=== PATIENT | female | born 1950 | race Caucasian/White ===

== ENCOUNTER 2017-01-26 15:02 | Emergency (ER) | payer MEDICAID ==
[~2017-01-26] VITALS: Ht 160 cm; Wt 100.0 kg
[~2017-01-26 15:02] MED LIST: ATEN50TA PO; DILT180C PO; HYDR25TA5 PO; LOSA100T PO; WARF-58 PO
[2017-01-26 15:06] VITALS: BP 140/75; PULSE 87; RESP 20; TEMP 100.1; O2SAT 98
[2017-01-26 16:35] VITALS: BP 162/84; PULSE 57; RESP 18; O2SAT 97
--- NOTE | 2017-01-26 16:40 | PD ---
HPI Chief Complaint: Dizziness Time Seen by Provider: 16:02 Travel History International Travel<30 days: No Contact w/Intl Traveler<30days: No Traveled to known affect area: No History of Present Illness HPI This is a 66-year-old female with a history of atrial fibrillation, on Coumadin , who presents after having a mechanical fall. The patient states she tripped and stubbed her right toe and fell to the floor. She is unsure whether she struck her head or not. The patient states that she's been extremely hot over last 2 weeks because the air conditioning has not been running normally. She denies any photophobia or failure vision. She denies any true head pain but is not sure whether she hit her head. She denies any neck pain. She does report some swelling over her right knee. She is able to ambulate. Patient also stopped her right great toe and has a blood blister under the pad of her toe. PFSH Past Medical History Hx Anticoagulant Therapy: Yes Asthma: No Atrial Fibrillation: Yes Autoimmune Disease: No Blood Disorders: No Heart Rhythm Problems: Yes (AFIB) Cancer: No Cardiovascular Problems: Yes High Cholesterol: No Congestive Heart Failure: Yes COPD: No Cerebrovascular Accident: No Gastrointestinal Disorders: Yes (UMBILICAL HERNIA) GERD: No Hepatitis: No Hiatal Hernia: No Hypertension: Yes Neurologic: No Psychiatric: No Respiratory: No Myocardial Infarction: No Seizures: No Sleep Apnea: No Thyroid Disease: No Ulcer: No Tetanus Vaccination: Unknown Influenza Vaccination: No ?: Not Past Surgical History Surgical History: No Previous Surgery AICD: No Genitourinary Surgery: No Pacemaker: No Other Surgery: No Social History Alcohol Use: No Tobacco Use: No Substance Use: No Allergies-Medications (Allergen,Severity, Reaction): Coded Allergies: No Known Allergies (Verified , 01/26/17) Reported Meds & Prescriptions Reported Meds & Active Scripts Active Diltiazem HCl ER (Diltiazem HCl Coated Beads) 180 Mg Cap 180 Mg PO DAILY Losartan (Losartan Potassium) 100 Mg Tab 100 Mg PO DAILY Hydrochlorothiazide 25 Mg Tab 25 Mg PO BID Warfarin 3 Mg Tab 3 Mg PO DIRECTED Atenolol 50 Mg Tab 50 Mg PO BID Review of Systems Except as stated in HPI: all other systems reviewed are Neg General / Constitutional: No: Fever, Chills HENT: Positive: Lightheadedness (mild lightheaded over 2 weeks secondary to the air conditioning not running well), No: Headaches, Neck Stiffness, Neck Pain Cardiovascular: No: Chest Pain or Discomfort, Palpitations Respiratory: No: Cough, Shortness of Breath Gastrointestinal: No: Nausea, Vomiting, Abdominal Pain Genitourinary: No: Dysuria, Nocturia Musculoskeletal: Positive: Arthralgias (right knee), Edema (chronic edema to the bilateral lower extremities.), Pain (right great toe use and just above the right knee.) Neurologic: No: Weakness, Dizziness, Headache Physical Exam Narrative GENERAL: Well-developed well-nourished female in no obvious respiratory distress. SKIN: Focused skin assessment warm/dry. HEAD: Atraumatic. Normocephalic. No obvious scalp abrasions or hematomas noted. EYES: Extraocular muscles were intact. No scleral icterus. No injection or drainage. ENT: No nasal bleeding or discharge. Mucous membranes pink and moist. NECK: Trachea midline. No JVD. Supple. CARDIOVASCULAR: Irregularly irregular with a rate in the 80s. RESPIRATORY: No accessory muscle use. Clear to auscultation. Breath sounds equal bilaterally. GASTROINTESTINAL: Abdomen soft, non-tender, nondistended. MUSCULOSKELETAL: No obvious deformities. Chronic bilateral lower extremity edema. Patient has questionable slight increase in swelling to the right suprapatellar region of the right knee. She had full range of motion. On examination patient's right great toe she has 2 blood blisters under her toe on the pad. There is no obvious deformity. NEUROLOGICAL: Awake and alert. No obvious cranial nerve deficits. Motor grossly within normal limits. Normal speech. PSYCHIATRIC: Appropriate mood and affect; insight and judgment normal. Data Data Last Documented VS Vital Signs Date Time Temp Pulse Resp B/P Pulse Ox O2 Delivery O2 Flow Rate FiO2 01/26/17 15:06 100.1 87 20 140/75 98 Room Air Orders Complete Blood Count With Diff (01/26/17 16:13) Basic Metabolic Panel (Bmp) (01/26/17 16:13) Prothrombin Time / Inr (Pt) (01/26/17 16:13) Act Partial Throm Time (Ptt) (01/26/17 16:13) Ct Brain W/O Iv Contrast(Rout) (01/26/17 16:13) Knee, Ltd (1 Or 2vws) (01/26/17 16:13) Toe (Min 2vws) (01/26/17 16:13) Labs Laboratory Tests Test 01/26/17 17:10 White Blood Count 9.0 TH/MM3 Red Blood Count 3.87 MIL/MM3 Hemoglobin 12.3 GM/DL Hematocrit 35.5 % Mean Corpuscular Volume 91.6 FL Mean Corpuscular Hemoglobin 31.8 PG Mean Corpuscular Hemoglobin 34.7 % Concent Red Cell Distribution Width 13.2 % Platelet Count 172 TH/MM3 Mean Platelet Volume 8.9 FL Neutrophils (%) (Auto) 67.7 % Lymphocytes (%) (Auto) 22.1 % Monocytes (%) (Auto) 8.7 % Eosinophils (%) (Auto) 0.8 % Basophils (%) (Auto) 0.7 % Neutrophils # (Auto) 6.1 TH/MM3 Lymphocytes # (Auto) 2.0 TH/MM3 Monocytes # (Auto) 0.8 TH/MM3 Eosinophils # (Auto) 0.1 TH/MM3 Basophils # (Auto) 0.1 TH/MM3 CBC Comment DIFF FINAL Differential Comment Prothrombin Time 22.9 SEC Prothromb Time International 2.0 RATIO Ratio Activated Partial 33.7 SEC Thromboplast Time Sodium Level 137 MEQ/L Potassium Level 3.3 MEQ/L Chloride Level 102 MEQ/L Carbon Dioxide Level 25.6 MEQ/L Anion Gap 9 MEQ/L Blood Urea Nitrogen 27 MG/DL Creatinine 1.56 MG/DL Estimat Glomerular Filtration 33 ML/MIN Rate Random Glucose 98 MG/DL Calcium Level 9.0 MG/DL MDM Medical Decision Making Medical Screen Exam Complete: Yes Emergency Medical Condition: Yes Differential Diagnosis Intracranial hemorrhage versus over anticoagulation versus right knee effusion versus right great toe fracture Narrative Course 66-year-old female who presents with right knee pain, right great toe pain, mechanical fall and he was on Coumadin. Head CT shows no evidence of acute intra-cranial process. Patient has a history of diabetes. She has renal insufficiency noted on her lab work. Last labs we have is from 2014. Creatinine at that time was normal. Creatinine here is 1.56. She'll be discharged told to follow up with her primary care physician. Her ionized 2.0 so she does not need to have it checked for another month. She was told to continue with her medications as prescribed. Diagnosis Primary Impression: mechanical fall Additional Impressions: Contusion of right knee right great toe contusion anticoagulated with INR 2.0 Closed head injury Renal insufficiency Additional Instructions: Your INR was 2.0 today. That is therapeutic. Follow up with her primary care physician. U have kidney insufficiency and it will need to be followed by her primary care physician. Disposition: 01 DISCHARGE HOME Condition: Stable Milad Nagy MD Jan 26, 2017 16:40
--- NOTE | 2017-01-26 16:52 | RADRPT ---
EXAM DATE/TIME: 01/26/2017 16:37 [facility] COMPARISON: No previous studies available for comparison. INDICATIONS : Pain from fall. MEDICAL HISTORY : None. SURGICAL HISTORY : None. ENCOUNTER: Initial ACUITY: 1 day PAIN SCORE: 3/10 LOCATION: Right first digit. FINDINGS: No definite fractures, or dislocations are identified. No definite lytic or sclerotic lesion is seen . Slight osteopenia is seen. CONCLUSION: Slight osteopenia. KCassidy Dsouza MD on January 26, 2017 at 16:50 Board Certified Radiologist. This report was verified electronically.
--- NOTE | 2017-01-26 16:52 | RADRPT ---
EXAM DATE/TIME: 01/26/2017 16:36 [facility] COMPARISON: No previous studies available for comparison. INDICATIONS : Pain from fall. MEDICAL HISTORY : None. SURGICAL HISTORY : None. ENCOUNTER: Initial ACUITY: 1 day PAIN SCORE: 3/10 LOCATION: Right knee. FINDINGS: No definite fractures, or dislocations are identified. No definite lytic or sclerotic lesion is seen . Slight osteopenia is seen. There is osteoarthritis with tricompartment source within the medial co mpartment to a significant degree. Chondrocalcinosis is seen. CONCLUSION: Chronic changes and no evidence for acute fracture. Michael Dsouza MD on January 26, 2017 at 16:50 Board Certified Radiologist. This report was verified electronically.
--- NOTE | 2017-01-26 16:56 | RADRPT ---
EXAM DATE/TIME: 01/26/2017 16:38 [facility] COMPARISON: No previous studies available for comparison. INDICATIONS : Patient fell, hit head, now dizzy. RADIATION DOSE: 56.77 CTDIvol (mGy) MEDICAL HISTORY : Cardiovascular disease. Congestive heart failure. Diabetes mellitus type 2.HTN SURGICAL HISTORY : None. ENCOUNTER: Initial ACUITY: 2 days PAIN SCALE: 3/10 LOCATION: Bilateral cranial TECHNIQUE: Multiple contiguous axial images were obtained of the head. Using automated exposure control and adjustment of the mA and/or kV according to patient size, radiation dose was kept as low as reasonably achievable to obtain optimal diagnostic quality images. DICOM format image data is av ailable electronically for review and comparison. FINDINGS: There is no evidence for intracranial hemorrhage, mass effect, mass lesions, edema, or extra-axial fl uid collections. The visualized bony structures appear intact. The ventricles are normal size for t he patient's age. There are no signs of acute infarction for technique. Approximate 2.8 cm scalp mas s is present in the occipital regions posteriorly in midline most likely benign. CONCLUSION: There is no evidence of any significant hemorrhage or mass effect. There is a mi dline partially calcified scalp mass in the occipital region and clinical correlation is suggested. Michael Dsouza MD on January 26, 2017 at 16:53 Board Certified Radiologist. This report was verified electronically.
[2017-01-26 17:39] LABS: APTT (PATIENT) 33.7 SEC (24.3-30.1); PROTHROMBIN TIME - PATIENT 22.9 SEC (9.8-11.6)
[2017-01-26 18:02] LABS: AUTOMATED NEUTROPHIL # 6.1 TH/MM3 (1.8-7.7); BASOPHIL # 0.1 TH/MM3 (0-0.2); BASOPHIL % 0.7 % (0.0-2.0); EOSINOPHIL # 0.1 TH/MM3 (0-0.4); EOSINOPHIL % 0.8 % (0.0-4.0); HEMATOCRIT 35.5 % (35.0-46.0); HEMO FLAGS DIFF FINAL; LYMPH % 22.1 % (9.0-44.0); MEAN CELL VOLUME 91.6 FL (80.0-100.0); MEAN CORPUSCULAR HEMOGLOBIN 31.8 PG (27.0-34.0); MEAN CORPUSCULAR HGB CONC 34.7 % (32.0-36.0); MONO % 8.7 % (0.0-8.0); NEUT % 67.7 % (16.0-70.0); PLATELET COUNT 172 TH/MM3 (150-450); RED BLOOD COUNT 3.87 MIL/MM3 (4.00-5.30); RED CELL DISTRIBUTION WIDTH 13.2 % (11.6-17.2)
[2017-01-26 18:04] LABS: BICARBONATE 25.6 MEQ/L (21.0-32.0); POTASSIUM 3.3 MEQ/L (3.5-5.1)
[2017-01-26] MEDS ORDERED: TETANUS/DIPHTHERIA TOXOID ADULT 0.5 ML VIAL IM ONE (18:45)
[2017-01-26 18:59] VITALS: BP 137/80
[2017-01-30] MEDS ORDERED: ATEN50TA PO (22:26)
[2017-01-30] MEDS ORDERED: WARF-58 PO (22:27)
== END 2017-01-26 19:10 | disposition home or self-care (01) ==
LOC: NEPC 15:02
DX: S80.01XA Contusion of right knee, initial encounter (principal); S90.111A Contusion of right great toe without damage to nail, initial encounter; S09.90XA Unspecified injury of head, initial encounter; N28.9 Disorder of kidney and ureter, unspecified; I48.91 Unspecified atrial fibrillation; W01.0XXA Fall on same level from slipping, tripping and stumbling without subsequent striking against object, initial encounter; Z79.01 Long term (current) use of anticoagulants; Z23 Encounter for immunization
CPT/HCPCS: 70450; 73560; 73660; 80048; 85025; 85610; 85730; 90471; 90714

== ENCOUNTER 2018-02-24 15:34 | Observation (INO) ==
[2018-02-24] MEDS ORDERED: Tetanus/Diphtheria Toxoid Adult Vaccine Inj 0.5 ML Vial IM ONE (16:31)
--- NOTE | 2018-02-24 16:31 | ED ---
HPI General Chief Complaint: Extremity Injury, Upper Stated Complaint: fall/rt arm pain Time Seen by Provider: 02/24/18 15:56 Source: patient and RN notes reviewed Mode of arrival: ambulatory Limitations: no limitations History of Present Illness HPI narrative: 67-year-old female presents to the emergency department for evaluation of right arm injury that occurred after she fell just shortly before arrival. She states she was carrying a garbage when she fell on her right arm. She is adamant that she did not hit her head. She is on Coumadin, but states that she is absolutely sure she did not hit her head. No LOC. No neck pain or back pain. No chest pain or abdominal pain. Patient does report chronic right knee pain. She states she does not believe it is worse since the fall. She has been ambulatory since the fall. Current pain in the right arm is 10/10. She states the pain is mainly around the right elbow. She reports reduced extension due to pain. She has a skin tear to the right hand. She states that she is unsure when her last tetanus immunization was. Moderate severity. complaint: injury to: right and arm Onset (ago): hour(s) Other Extremity Injury: Right: elbow and arm Other injuries: RLE Handedness: right Place: home Severity: moderate Severity scale (1-10): 10 Relieving factors: immobilization Exacerbating factors: movement of extremity Context: fall Associated symptoms: denies other symptoms Related Data Allergies Allergy/AdvReac Type Severity Reaction Status Date / Time No Known Allergies Unknown Uncoded 06/21/17 11:30 Review of Systems ROS: all other systems reviewed are negative [facility] Medical History Medical History Afib (Acute) CHF (congestive heart failure) (Acute) Foot fracture (Acute) HTN (hypertension) (Acute) History of diabetes mellitus (Acute) Right arm fracture (Acute) Family History Family History Other Breast cancer Liver cancer Lung cancer Social History Social History Substance History: No History of Abuse Second Hand Smoke Exposure: No Smoking Status: Never smoker Tobacco Type: Cigarettes How Often Do You Have a Drink Containing Alcohol: Monthly or less Recent Travel in [facility] within the Last 8 Weeks: No Recent Out of Country Travel within the Last 8 Weeks: No Immunization History Tetanus Immunization: Unsure Hx Influenza Vaccine This Season: No Exam Narrative Exam Narrative: GENERAL: Well-nourished, well-developed female patient, ambulatory. Afebrile SKIN: Focused skin assessment warm/dry. Patient has skin tear to the right dorsal hand HEAD: Normocephalic. Atraumatic EYES: No scleral icterus. No injection or drainage. NECK: Supple, trachea midline. No JVD or lymphadenopathy. CARDIOVASCULAR: Regular rate and rhythm without murmurs, gallops, or rubs. Right radial pulse is 2+ RESPIRATORY: Breath sounds equal bilaterally. No accessory muscle use. Lung sounds are clear to auscultation GASTROINTESTINAL: Abdomen soft, non-tender, nondistended. MUSCULOSKELETAL: No cyanosis, or edema. Patient has tenderness over right posterior elbow, right dorsal forearm. No obvious deformity BACK: Nontender without obvious deformity. No CVA tenderness. No midline spinal tenderness. Course Initial Documented Vital Signs Temperature 98 F 02/24/18 15:36 Pulse Rate 73 02/24/18 15:36 Respiratory Rate 17 02/24/18 15:36 Blood Pressure 126/68 02/24/18 15:36 Pulse Oximetry 97 02/24/18 15:36 Last Documented Vital Signs Temperature 98 F 02/24/18 15:36 Pulse Rate 73 02/24/18 15:36 Respiratory Rate 17 02/24/18 15:36 Blood Pressure 126/68 02/24/18 15:36 Pulse Oximetry 97 02/24/18 15:36 Medical Decision Making MDM Narrative Medical decision making narrative: 67-year-old female presents to the emergency department for evaluation of right arm and right knee injury after she suffered a mechanical fall just prior to arrival. X-ray of the right elbow, right forearm, right knee are ordered and pending. Tetanus immunization is updated. Patient declines pain medication at this time. X-ray of the right elbow shows comminuted displaced radial head fracture. X- ray of the right forearm shows comminuted fracture of the radial head and neck. X-ray of the right knee shows no acute fracture. Contacted orthopedist on-call, Dr. Camarillo, who recommends admission for surgery. He is aware the patient is on Coumadin. INR is pending. Posterior long-arm splint is placed on patient. Dr. Camarillo called and requested CT scan of the elbow to be completed. I spoke with Dr. Spencer, hospitalist, who accepted admission. Medical Screen Exam Complete: Yes Emergency Medical Condition: Yes Differential Diagnosis Differential Diagnosis: Fracture versus contusion versus sprain versus strain versus dislocation Imaging Data Radiologist's impression: Forearm X-Ray 02/24/18 00:00 CONCLUSION: Comminuted fracture of the radial head and neck. Elbow X-Ray 02/24/18 16:03 CONCLUSION: Comminuted displaced radial head fracture. Knee X-Ray 02/24/18 16:03 CONCLUSION: 1. Osteoarthritic findings with large osteophytes and moderate severity medial compartment narrowing. These findings are similar to the prior study. 2. Large joint effusion. This finding is new. 3. No evidence of fracture. Chest X-Ray 02/24/18 17:14 CONCLUSION: Mild cardiac silhouette enlargement. No other acute cardiopulmonary disease identified. Discharge Plan Discharge Disposition Patient Disposition: 30 Still Patient Discharge Details Diagnosis: Closed fracture of right elbow Physicians Team ED Provider: Farrukh Benitez ED Midlevel Provider: Natali Shaffer Primary Care Provider: DEEPALI, Attending Provider: López Spencer Other Providers: Joseph Camarillo Status ED Status: Admitted Observation Patient
--- NOTE | 2018-02-24 16:52 | XR ---
EXAM DATE: 02/24/2018 4:42 PM EDT AGE/SEX: 67 years / Female INDICATIONS: Right elbow pain post fall, unable to supinate or pronate. CLINICAL DATA: This is the patient's initial encounter. Patient reports that signs and symptoms have been present for 1 day and indicates a pain score of 10/10. MEDICAL/SURGICAL HISTORY: . Two prior fractures to right forearm. None. COMPARISON: No prior exams available for comparison. FINDINGS: 3 views of the right forearm. Comminuted fracture of the radial head and neck with radial head fragme nt displaced medially and proximally 2 cm. Healed ulnar shaft fracture deformity. CONCLUSION: Comminuted fracture of the radial head and neck. Electronically signed by: Vito Mata MD 02/24/2018 4:51 PM EDT
[2018-02-24] MEDS ORDERED: Morphine Inj 4 MG/ML Vial IV.PUSH ONE (17:20)
--- NOTE | 2018-02-24 17:20 | XR ---
EXAM DATE: 02/24/2018 4:46 PM EDT AGE/SEX: 67 years / Female INDICATIONS: Chronic pain and swelling of the right knee. Fall today but patient claims no ill effec ts to the knee from it. CLINICAL DATA: This is the patient's initial encounter. Patient reports that signs and symptoms have been present for > 1 year and indicates a pain score of 1/10. MEDICAL/SURGICAL HISTORY: None. None. COMPARISON: [facility] [place], KNEE RIGHT [facility] (1 OR 2 VWS), 01/26/2017. . FINDINGS: 4 views of the right knee. Large tricompartmental osteophytes. Moderate severity medial compartment n arrowing. Large joint effusion. No evidence of fracture. Alignment within normal limits. CONCLUSION: 1. Osteoarthritic findings with large osteophytes and moderate severity medial compartment narrowing . These findings are similar to the prior study. 2. Large joint effusion. This finding is new. 3. No evidence of fracture. Electronically signed by: Vito Mata MD 02/24/2018 5:19 PM EDT
--- NOTE | 2018-02-24 17:22 | XR ---
EXAM DATE: 02/24/2018 4:41 PM EDT AGE/SEX: 67 years / Female INDICATIONS: Right elbow pain post fall, unable to supinate or pronate. CLINICAL DATA: This is the patient's initial encounter. Patient reports that signs and symptoms have been present for 1 day and indicates a pain score of 10/10. MEDICAL/SURGICAL HISTORY: . Two prior fractures to right forearm. None. COMPARISON: [facility] [place], FOREARM RIGHT 2V, 02/24/2018. . FINDINGS: 4 views of right elbow. Comminuted displaced fracture of the radial head and neck. Fracture fragment is displaced medially 2 cm. Second fracture fragment is displaced anteriorly. Large joint effusion. CONCLUSION: Comminuted displaced radial head fracture. Electronically signed by: Vito Mata MD 02/24/2018 5:21 PM EDT
[2018-02-24] MEDS ORDERED: Acetaminophen 325 MG Tablet PO PRN (17:54)
--- NOTE | 2018-02-24 17:58 | XR ---
EXAM DATE: 02/24/2018 5:43 PM EDT AGE/SEX: 67 years / Female INDICATIONS: Evaluate for any pulmonary diseases as patient is being screened for right elbow surger y. CLINICAL DATA: This is the patient's initial encounter. Patient reports that signs and symptoms have been present for 1 day and indicates a pain score of 0/10. MEDICAL/SURGICAL HISTORY: None. None. COMPARISON: No prior exams available for comparison. FINDINGS: Single AP view of the chest. The lungs are clear. Mild cardiac silhouette enlargement. No evidence of pleural effusion or pneumothorax. CONCLUSION: Mild cardiac silhouette enlargement. No other acute cardiopulmonary disease identified. Electronically signed by: Vito Mata MD 02/24/2018 5:57 PM EDT
[2018-02-24] MEDS ORDERED: ALPRAZolam 0.25 MG Tablet PO PRN (18:01)
--- NOTE | 2018-02-24 18:12 | P.HPIM ---
History of Present Illness Primary Care Physician: UNKNOWN Chief Complaint: Arm pain History of Present Illness: The patient is a 67-year-old female with a past medical history of atrial fibrillation, CHF and hypertension who is presenting to the hospital after a fall. The patient says that she was carrying a bag and then all of a sudden she was on the ground. She does not recall any symptoms prior to falling down. She is not sure if she tripped or not. She did not feel any weakness prior to falling down, but she was aware of herself falling to the floor. She denies hitting her head or blacking out. She says she felt significant pain in her right arm immediately. She got herself up and drove herself to the hospital one -handed. The patient is to admit about taking pain medications but realizes she needs them. She endorses a lot of anxiety and seems interested in anxiety medications as needed. The patient says she is nervous about living at home alone because things like this fall happens to her. She has some neighbors that also make her nervous. Review of Systems All other systems reviewed negative except as stated in HPI PMFSH - History History Provided By: Patient - Medical History Medical History: Medical History (Last Updated 02/24/18 @ 18:04 by López Spencer DO) Afib CHF (congestive heart failure) Foot fracture HTN (hypertension) History of diabetes mellitus Right arm fracture - Family History Family History: Family History (Last Updated 02/24/18 @ 18:05 by López Spencer DO) Other Breast cancer Liver cancer Lung cancer - Tobacco History Second Hand Smoke Exposure: No Tobacco Use In Past 30 Days: No Smoking Status: Never smoker - Alcohol History How Often Do You Have a Drink Containing Alcohol: Monthly or less - Substance Use History Substance History: No History of Abuse - Travel History Recent Travel in the [place] Within the Last 8 Weeks: No Recent Travel Out of the Country Within the Last 8 Weeks: No - Immunization History Tetanus Immunization: Unsure Hx Influenza Vaccine This Season: No Medications and Allergies Active Medications: Active Medications Acetaminophen (Tylenol) 650 mg PO Q4H PRN PRN Reason: Temp > 100.4 Senna/Docusate Sodium (Anais-Colace) 1 tab PO BID AMI Allergies Allergy/AdvReac Type Severity Reaction Status Date / Time No Known Allergies Unknown Uncoded 06/21/17 11:30 Exam Vital signs: Vital Signs 02/24/18 15:36 Temperature 98 F Pulse Rate 73 Respiratory Rate 17 Blood Pressure 126/68 Pulse Oximetry 97 Intake & Output 02/23/18 02/24/18 02/24/18 18:59 06:59 18:59 Weight 86.636 kg Narrative: GENERAL: Well-nourished, well-developed female patient, NAD. SKIN: Focused skin assessment warm/dry. Patient has bruising to the right dorsal hand. HEAD: Normocephalic. Atraumatic. EYES: No scleral icterus. No injection or drainage. NECK: Supple, trachea midline. No JVD or lymphadenopathy. CARDIOVASCULAR: Regular rate and rhythm without murmurs, gallops, or rubs. RESPIRATORY: Breath sounds equal bilaterally. No accessory muscle use. Lung sounds are clear to auscultation. GASTROINTESTINAL: Abdomen soft, non-tender, nondistended. MUSCULOSKELETAL: No cyanosis, or edema. Patient has tenderness over right posterior elbow, right dorsal forearm. No obvious deformity. BACK: Nontender without obvious deformity. No CVA tenderness. No midline spinal tenderness. PSYCH: Teary-eyed. Results - Imaging Impressions Forearm X-Ray 02/24/18 00:00 CONCLUSION: Comminuted fracture of the radial head and neck. Elbow X-Ray 02/24/18 16:03 CONCLUSION: Comminuted displaced radial head fracture. Knee X-Ray 02/24/18 16:03 CONCLUSION: 1. Osteoarthritic findings with large osteophytes and moderate severity medial compartment narrowing. These findings are similar to the prior study. 2. Large joint effusion. This finding is new. 3. No evidence of fracture. Chest X-Ray 02/24/18 17:14 CONCLUSION: Mild cardiac silhouette enlargement. No other acute cardiopulmonary disease identified. Caprini VTE Risk Assessment Caprini VTE Risk Assessment: Moderate/High Risk (score >= 2) Caprini Risk Assessment Model: Point Value = 1 Point Value = 2 Point Value = 3 Point Value = 5 Age 41-60 Minor surgery BMI > 25 kg/m2 Swollen legs Varicose veins or History of unexplained or recurrent spontaneous Oral contraceptives or hormone replacement Sepsis (< 1 month) Serious lung disease, including pneumonia (< 1 month) Abnormal pulmonary function Acute myocardial infarction Congestive heart failure (< 1 month) History of inflammatory bowel disease Medical patient at bed rest Age 61-74 Arthroscopic surgery Major open surgery (> 45 min) Laparoscopic surgery (> 45 min) Malignancy Confined to bed (> 72 hours) Immobilizing plaster cast Central venous access Age >= 75 History of VTE Family history of VTE Factor V Leiden Prothrombin [id number] Lupus anticoagulant Anticardiolipin antibodies Elevated serum homocysteine Heparin-induced thrombocytopenia Other congenital or acquired thrombophilia Stroke (< 1 month) Elective arthroplasty Hip, pelvis, or leg fracture Acute spinal cord injury (< 1 month) Prophylaxis Regimen: Total Risk Factor Score Risk Level Prophylaxis Regimen 0-1 Low Early ambulation 2 Moderate Order ONE of the following: *Sequential Compression Device (SCD) *Heparin 5000 units SQ BID 3-4 Higher Order ONE of the following medications: *Heparin 5000 units SQ TID *Enoxaparin/Lovenox 40 mg SQ daily (WT < 150 kg, CrCl > 30 mL/min) *Enoxaparin/Lovenox 30 mg SQ daily (WT < 150 kg, CrCl > 10-29 mL/min) *Enoxaparin/Lovenox 30 mg SQ BID (WT < 150 kg, CrCl > 30 mL/min) AND/OR *Sequential Compression Device (SCD) 5 or more Highest Order ONE of the following medications: *Heparin 5000 units SQ TID (Preferred with Epidurals) *Enoxaparin/Lovenox 40 mg SQ daily (WT < 150 kg, CrCl > 30 mL/min) *Enoxaparin/Lovenox 30 mg SQ daily (WT < 150 kg, CrCl > 10-29 mL/min) *Enoxaparin/Lovenox 30 mg SQ BID (WT < 150 kg, CrCl > 30 mL/min) AND *Sequential Compression Device (SCD) Assessment and Plan - Plan Right radial fracture Following a fall. The patient did not lose consciousness and had no symptoms prior to the fall. Per RCRI the patient has 1 point for having CHF, making her 0.9% cardiac risk for a moderate risk surgery. -orthopedic surgery consult requested. -make pt NPO after midnight. -hold Coumadin and follow INR. -PT and OT evals. -follow CBC. -pain control with a bowel regimen. Anxiety The pt is anxious about her living environment. -low dose Xanax as needed. -case management consult. A fib Rate is currently controlled. -resume home regimen. Medication reconciliation The pt's home meds are currently not updated. Pt reports being on losartan, atenolol, diltiazem, furosemide and warfarin as an outpt. -resume home meds once reconciliation is completed. -will resume diltiazem 180 mg daily for now. PPx: On Coumadin, which is on hold
[2018-02-24 18:37] LABS: Baso # (Auto) 0.1 th/mm3 (0.0-0.2); Baso % (Auto) 0.7 % (0.0-2.0); Eos # (Auto) 0.1 th/mm3 (0.0-0.4); Eos % (Auto) 1.2 % (0.0-4.0); Hematocrit 38.4 % (35.0-46.0); Hemoglobin 12.8 gm/dL (11.6-15.3); Lymph # (Auto) 2.1 th/mm3 (1.0-4.8); Lymph % (Auto) 22.8 % (9.0-44.0); Mean Corpuscular HGB Conc 33.3 % (32.0-36.0); Mean Corpuscular Hemoglobin 31.3 pg (27.0-34.0); Mean Corpuscular Volume 93.9 fL (80.0-100.0); Mean Platelet Volume 8.9 fL (7.0-11.0); Mono # (Auto) 0.6 th/mm3 (0.0-0.9); Mono % (Auto) 6.8 % (0.0-8.0); Neut # (Auto) 6.2 th/mm3 (1.8-7.7); Neut % (Auto) 68.5 % (16.0-70.0); Platelet Count 174 th/mm3 (150-450); Red Blood Count 4.09 mil/mm3 (4.00-5.30); Red Cell Distribution Width 13.2 % (11.6-17.2); White Blood Count 9.1 th/mm3 (4.0-11.0)
[2018-02-24 18:43] LABS: Activated Partial Thrombo Time 28.3 sec (24.3-30.1); Prothrombin Time 20.7 sec (9.8-11.6)
[2018-02-24 18:48] LABS: Calcium 8.8 mg/dL (8.5-10.1); Carbon Dioxide 27.8 meq/L (21.0-32.0); Potassium 3.5 meq/L (3.5-5.1)
--- NOTE | 2018-02-24 19:38 | CT ---
EXAM DATE: 02/24/2018 6:59 PM EDT AGE/SEX: 67 years / Female INDICATIONS: Fall today, landed on right arm CLINICAL DATA: This is the patient's initial encounter. Patient reports that signs and symptoms have been present for 1 day and indicates a pain score of 7/10. MEDICAL/SURGICAL HISTORY: Congestive heart failure. Hypertension. Atrial Fib None. RADIATION DOSE: 26.91 CTDI (mGy) COMPARISON: No prior exams available for comparison. TECHNIQUE: Multiple contiguous axial images were acquired using a multi-row detector CT scanner. Mu ltiplanar reconstruction was performed in the sagittal and coronal planes. Using automated exposure control and adjustment of the mA and/or kV according to patient size, radiation dose was kept as low as reasonably achievable to obtain optimal diagnostic quality images. DICOM format image data is adeola ilable electronically for review and comparison. FINDINGS: Bones: Fractures are identified involving the proximal ulna extending into the ulnohumeral joint. Th ere is an avulsion fragment of the coronoid process. A comminuted displaced fracture of the radial head is identified. The radial head lies along side of the lateral humeral epicondyle. Joints: Disrupted radiocapitellar joints due to fractures extending intra-articularly. There is radi ocapitellar dislocation. Soft Tissues: Significant soft tissue swelling is identified. Elbow effusion is identified. Other: No foreign bodies seen. CONCLUSION: 1. Fractured proximal ulna and radius 2. Radiocapitellar dislocation 3. Or joint effusion or significant periarticular soft tissue swelling Electronically signed by: Handy Puga MD 02/24/2018 7:37 PM EDT
[2018-02-24] MEDS: Senna/Docusate Sodium 8.6/50 MG Tablet PO SCH (21:58)
[2018-02-25] MEDS: Morphine Inj 4 MG/ML Vial IV.PUSH PRN ×2 (00:46→11:29)
[2018-02-25 05:58] LABS: Baso % (Auto) 0.7 % (0.0-2.0); Eos # (Auto) 0.1 th/mm3 (0.0-0.4); Eos % (Auto) 1.7 % (0.0-4.0); Hemoglobin 11.7 gm/dL (11.6-15.3); Lymph # (Auto) 1.6 th/mm3 (1.0-4.8); Lymph % (Auto) 23.4 % (9.0-44.0); Mean Corpuscular HGB Conc 33.3 % (32.0-36.0); Mean Corpuscular Hemoglobin 31.4 pg (27.0-34.0); Mean Corpuscular Volume 94.3 fL (80.0-100.0); Mean Platelet Volume 8.9 fL (7.0-11.0); Mono # (Auto) 0.8 th/mm3 (0.0-0.9); Mono % (Auto) 11.3 % (0.0-8.0); Neut # (Auto) 4.2 th/mm3 (1.8-7.7); Neut % (Auto) 62.9 % (16.0-70.0); Platelet Count 130 th/mm3 (150-450); Red Blood Count 3.71 mil/mm3 (4.00-5.30); Red Cell Distribution Width 13.3 % (11.6-17.2); White Blood Count 6.6 th/mm3 (4.0-11.0)
[2018-02-25 06:05] LABS: Prothrombin Time 20.1 sec (9.8-11.6)
[2018-02-25 06:33] LABS: Albumin 2.8 g/dL (3.4-5.0); Anion Gap 8 meq/L (5-15); Aspartate Aminotransferase 17 U/L (15-37); Blood Urea Nitrogen 21 mg/dL (7-18); Calcium 8.2 mg/dL (8.5-10.1); Carbon Dioxide 28.7 meq/L (21.0-32.0); Chloride 106 meq/L (98-107); Glomerular Filtration Rate 50 mL/min (>89); Glucose,Random 91 mg/dL (74-106); Potassium 3.4 meq/L (3.5-5.1); Sodium 143 meq/L (136-145)
[2018-02-25 06:34] LABS: Alanine Aminotransferase 16 U/L (10-53)
[2018-02-25 06:37] LABS: Alkaline Phosphatase 56 U/L (45-117); Total Protein 6.6 g/dL (6.4-8.2)
--- NOTE | 2018-02-25 06:56 | P.CONOP ---
[facility] Orthopedics Consult Note - [facility] Consult date: 02/25/18 Chief complaint: right elbow fracture Narrative: Luna is a 67-year-old female. She states that she was carrying a bag of trash out to her garbage container. She tripped and fell. She describes a mechanical fall. She landed on her right arm. She had immediate right arm pain and swelling. She presented to the emergency room where x-rays revealed a comminuted right radial head fracture with minimally displaced proximal ulnar fracture. She is currently awake and alert in the emergency department. She denies dizziness syncope or loss of consciousness. Elbow pain is worse with movement. She also complains of soreness of her right knee. She states that she has intermittent swelling and pain of her right knee prior to her fall. She has minimal pain at rest. Review of Systems Patient denies fevers, chills, weight loss, headache, visual changes, hearing loss, chest pain, palpitations, shortness of breath, nausea, vomiting, no urinary changes, diarrhea, bowel changes, neck pain, back pain, skin rashes, weakness of extremities, easy bleeding, enlarged lymph nodes, numbness of extremities, anxiety, or depression.. She complains of severe right elbow pain and mild right knee pain and swelling. PMFSH - History History Provided By: Patient - Medical History Medical History: Medical History (Last Updated 02/24/18 @ 18:04 by López Spencer DO) Afib CHF (congestive heart failure) Foot fracture HTN (hypertension) History of diabetes mellitus Right arm fracture - Family History Family History: Family History (Last Updated 02/24/18 @ 18:05 by López Spencer DO) Other Breast cancer Liver cancer Lung cancer - Tobacco History Second Hand Smoke Exposure: Yes Tobacco Use In Past 30 Days: No Smoking Status: Never smoker - Alcohol History How Often Do You Have a Drink Containing Alcohol: Monthly or less - Substance Use History Substance History: No History of Abuse - Travel History Recent Travel in the [place] Within the Last 8 Weeks: No Recent Travel Out of the Country Within the Last 8 Weeks: No - Immunization History Tetanus Immunization: Unsure Hx Influenza Vaccine This Season: No Medications and Allergies Active Medications: Active Medications Acetaminophen (Tylenol) 650 mg PO Q4H PRN PRN Reason: Temp > 100.4 Alprazolam (Xanax) 0.125 mg PO Q4H PRN PRN Reason: ANXIETY Last Admin: 02/24/18 23:04 Dose: 0.125 mg Diltiazem HCl (Cardizem Cd 24hr) 180 mg PO DAILY AMI Morphine Sulfate (Morphine Inj) 4 mg IV.PUSH Q4H PRN PRN Reason: BREAKTHROUGH PAIN Last Admin: 02/25/18 00:46 Dose: 4 mg Oxycodone/Acetaminophen (Percocet 5/325 Mg) 1 tab PO Q4H PRN PRN Reason: pain 3-10 Last Admin: 02/24/18 21:57 Dose: 1 tab Phytonadione (Vitamin K Inj) 5 mg SQ ONCE ONE Stop: 02/25/18 06:46 Phytonadione (Mephyton Liq) 5 mg PO ONCE ONE Stop: 02/25/18 06:44 Senna/Docusate Sodium (Anais-Colace) 1 tab PO BID AMI Last Admin: 02/24/18 21:58 Dose: Not Given Allergies Allergy/AdvReac Type Severity Reaction Status Date / Time No Known Allergies Unknown Uncoded 06/21/17 11:30 Home Medications Medication Instructions Recorded Confirmed Type atenolol See Label Instructions .ROUTE 02/24/18 02/24/18 History .COMPLEX diltiazem HCl See Label Instructions .ROUTE 02/24/18 02/24/18 History .COMPLEX furosemide [Lasix] See Label Instructions .ROUTE 02/24/18 02/24/18 History .COMPLEX losartan See Label Instructions .ROUTE 02/24/18 02/24/18 History .COMPLEX potassium chloride See Label Instructions .ROUTE 02/24/18 02/24/18 History .COMPLEX warfarin See Label Instructions .ROUTE 02/24/18 02/24/18 History .COMPLEX Exam Vital signs: Vital Signs 02/24/18 15:36 02/24/18 19:30 02/24/18 20:00 Temperature 98 F 98.2 F Pulse Rate 73 67 74 Respiratory Rate 17 18 17 Blood Pressure 126/68 158/85 H 116/68 Pulse Oximetry 97 99 100 02/24/18 23:57 02/25/18 04:00 Temperature 98.2 F 98.0 F Pulse Rate 61 110 H Respiratory Rate 18 17 Blood Pressure 111/70 108/69 Pulse Oximetry 99 95 Intake & Output 02/24/18 02/24/18 02/25/18 06:59 18:59 06:59 Weight 86.636 kg 90.3 kg Narrative: Luna is a pleasant 67-year-old female. General: Awake and alert. No acute distress. Appears well-developed well- nourished, moderately overweight Head: Normocephalic, atraumatic pupils are equal Neck: Soft, nontender, trachea midline Abdomen: Soft, nondistended Examination of right arm reveals no tenderness about her shoulder. She has intact sensation in radial, ulnar, and median nerve distributions. She is able to flex and extend her fingers with minimal pain. Her fingers appear warm and well perfused. She has pain with elbow motion. Forearm compartments are soft. Examination of left arm reveals no pain or deformity with shoulder, elbow, or wrist motion. Skin is intact. Radial pulse is palpable. Normal capillary refill in fingers. Sensation is intact in radial, ulnar, and median nerve distributions. Pr[place]her strength is +5 bilaterally. No lymphadenopathy noted. Examination of bilateral lower extremities reveals no pain or deformity with hip , knee, or ankle motion. Skin is intact. Sensation is intact in both feet. Dorsalis pedis pulses are palpable. Normal capillary refill and feet. Thigh and calf compartments are soft. No lymphadenopathy noted. +5 strength of ankle dorsiflexion and plantarflexion. She has a small bruise over her anterior right knee. Right knee range of motion is 0-90 with minimal pain. Results - Labs Result Diagrams: 02/25/18 05:30 02/25/18 05:30 Labs: Laboratory Results - last 24 hr 02/24/18 02/24/18 02/24/18 18:10 18:10 18:10 WBC 9.1 RBC 4.09 Hgb 12.8 Hct 38.4 MCV 93.9 MCH 31.3 MCHC 33.3 RDW 13.2 Plt Count 174 MPV 8.9 Neut % (Auto) 68.5 Lymph % (Auto) 22.8 [place] % (Auto) 6.8 Eos % (Auto) 1.2 Baso % (Auto) 0.7 Neut # (Auto) 6.2 Lymph # (Auto) 2.1 [place] # (Auto) 0.6 Eos # (Auto) 0.1 Baso # (Auto) 0.1 WBC Differential . Differential Comment Auto diff final PT 20.7 H INR 2.0 APTT 28.3 Sodium 141 Potassium 3.5 Chloride 103 Carbon Dioxide 27.8 Anion Gap 10 BUN 22 H Creatinine 1.24 H Estimated GFR 43 L Random Glucose 94 Calcium 8.8 Total Bilirubin AST ALT Alkaline Phosphatase Total Protein Albumin 02/25/18 02/25/18 02/25/18 05:30 05:30 05:30 WBC 6.6 RBC 3.71 L Hgb 11.7 Hct 35.0 MCV 94.3 MCH 31.4 MCHC 33.3 RDW 13.3 Plt Count 130 L MPV 8.9 Neut % (Auto) 62.9 Lymph % (Auto) 23.4 [place] % (Auto) 11.3 H Eos % (Auto) 1.7 Baso % (Auto) 0.7 Neut # (Auto) 4.2 Lymph # (Auto) 1.6 [place] # (Auto) 0.8 Eos # (Auto) 0.1 Baso # (Auto) 0.0 WBC Differential . Differential Comment Auto diff final PT 20.1 H INR 2.0 APTT Sodium 143 Potassium 3.4 L Chloride 106 Carbon Dioxide 28.7 Anion Gap 8 BUN 21 H Creatinine 1.10 H Estimated GFR 50 L Random Glucose 91 Calcium 8.2 L Total Bilirubin 0.6 AST 17 ALT 16 Alkaline Phosphatase 56 Total Protein 6.6 Albumin 2.8 L - Diagnostic results Imaging: Impressions Forearm X-Ray 02/24/18 00:00 CONCLUSION: Comminuted fracture of the radial head and neck. Elbow X-Ray 02/24/18 16:03 CONCLUSION: Comminuted displaced radial head fracture. Knee X-Ray 02/24/18 16:03 CONCLUSION: 1. Osteoarthritic findings with large osteophytes and moderate severity medial compartment narrowing. These findings are similar to the prior study. 2. Large joint effusion. This finding is new. 3. No evidence of fracture. Chest X-Ray 02/24/18 17:14 CONCLUSION: Mild cardiac silhouette enlargement. No other acute cardiopulmonary disease identified. Elbow CT 02/24/18 17:26 CONCLUSION: 1. Fractured proximal ulna and radius 2. Radiocapitellar dislocation 3. Or joint effusion or significant periarticular soft tissue swelling Elbow x-ray: report reviewed, image reviewed Elbow CT: report reviewed, image reviewed Knee x-ray: report reviewed, image reviewed Assessment and Plan - Problem List (1) Right radial head fracture Code(s): S52.121A - Displaced fracture of head of right radius, initial encounter for closed fracture Status: Acute (2) Fracture of right proximal ulna Code(s): S52.001A - Unspecified fracture of upper end of right ulna, initial encounter for closed fracture Status: Acute - Assessment and Plan Luna has multiple medical problems including H fibrillation, congestive heart failure, and hypertension She has a comminuted displaced right radial head fracture--recommend surgery for open reduction internal fixation versus radial head replacement She has minimally displaced right proximal ulna fracture. Postoperatively I will consult physical therapy and occupational therapy for elbow motion Patient is anticoagulated with Coumadin. I will order vitamin K to help correct INR Repeat INR in a.m. N.p.o. after midnight Surgery tomorrow if INR less than 1.4 The risk and benefits of surgery were discussed in depth with patient. The risk of surgery include bleeding, infection, injuries to arteries, nerves, or blood vessels, infection, wound complications, nonunion, malunion, painful hardware, elbow stiffness, elbow arthritis, and need for further surgery. I also discussed medical complications including blood clots, pneumonia, stroke, heart attack, and . Informed consent was obtained and all questions were answered. A mid-level provider in my office (nurse practitioner or physician microbiology lab assistant) may see this patient on follow-up visits and continue to implement the objectives of this plan including: Starting or adjusting medications, injections , cast application, orthotics, brace application, physical therapy, radiological studies (including x-ray, MRI, CT, ultrasound, bone scan), vascular studies, neurologic studies, specialist consultation, and proceeding with surgical management, as appropriate.
[2018-02-25] MEDS ORDERED: Phytonadione Inj 10 MG/ML Vial SQ ONE (09:00)
[2018-02-25] MEDS ORDERED: Phytonadione 5 MG/SWFI 5 ML Oral Syringe PO ONE (09:00)
[2018-02-25] MEDS: dilTIAZem CD 180 MG Capsule PO SCH (09:38)
[2018-02-25] MEDS: Senna/Docusate Sodium 8.6/50 MG Tablet PO SCH ×2 (09:38→20:59)
--- NOTE | 2018-02-25 10:06 | P.PN ---
Subjective Interval history: Follow-up for fall, elbow fracture, right knee pain. Patient reports continued right elbow pain, rated 7 out of 10, does get relief with pain medications. She also reports right knee pain and swelling with decreased range of motion of the knee. She is reporting some mild palpitations secondary to her A. fib and is requesting her home medications be restarted. She denies any chest pain or shortness of breath. Denies any fevers or chills. She denies any numbness or tingling to the right hand. She has no other medical complaints at this time. Physical Exam Vital signs: Vital Signs 02/24/18 15:36 02/24/18 19:30 02/24/18 20:00 Temperature 98 F 98.2 F Pulse Rate 73 67 74 Respiratory Rate 17 18 17 Blood Pressure 126/68 158/85 H 116/68 Pulse Oximetry 97 99 100 02/24/18 23:57 02/25/18 04:00 02/25/18 07:41 Temperature 98.2 F 98.0 F 98.4 F Pulse Rate 61 110 H 64 Respiratory Rate 18 17 14 Blood Pressure 111/70 108/69 121/81 Pulse Oximetry 99 95 98 Intake & Output 02/24/18 02/25/18 02/25/18 18:59 06:59 18:59 Weight 86.636 kg 90.3 kg Narrative: GENERAL: Well-nourished, well-developed middle-aged female patient in [facility]. SKIN: Warm and dry. No rash. HEENT: Normocephalic. Atraumatic. Pupils equal and round. Mucous membranes pink and moist. NECK: Supple. Trachea midline. CARDIOVASCULAR: Irregularly irregular rate and rhythm. No murmur appreciated. RESPIRATORY: No accessory muscle use. Clear to auscultation. Breath sounds equal bilaterally. GASTROINTESTINAL: Abdomen soft, non-tender, nondistended. Normoactive bowel sounds x4. MUSCULOSKELETAL: No obvious deformities. RUE in splint and sling, distal RUE sensation intact with brisk capillary refill. Right knee with moderate edema/ effusion compared to the left, diffusely TTP, with limited flexion secondary to pain/swelling. NEUROLOGICAL: Awake and alert. No obvious cranial nerve deficits. Motor grossly within normal limits. Moving all extremities spontaneously. Normal speech. PSYCHIATRIC: Appropriate mood and affect; insight and judgment normal. Results - Labs CBC & Chem 7: 08/27/18 05:30 02/25/18 05:30 Laboratory Results - last 24 hr 02/24/18 02/24/18 02/24/18 18:10 18:10 18:10 WBC 9.1 RBC 4.09 Hgb 12.8 Hct 38.4 MCV 93.9 MCH 31.3 MCHC 33.3 RDW 13.2 Plt Count 174 MPV 8.9 Neut % (Auto) 68.5 Lymph % (Auto) 22.8 Harlan % (Auto) 6.8 Eos % (Auto) 1.2 Baso % (Auto) 0.7 Neut # (Auto) 6.2 Lymph # (Auto) 2.1 Harlan # (Auto) 0.6 Eos # (Auto) 0.1 Baso # (Auto) 0.1 WBC Differential . Differential Comment Auto diff final PT 20.7 H INR 2.0 APTT 28.3 Sodium 141 Potassium 3.5 Chloride 103 Carbon Dioxide 27.8 Anion Gap 10 BUN 22 H Creatinine 1.24 H Estimated GFR 43 L Random Glucose 94 Calcium 8.8 Total Bilirubin AST ALT Alkaline Phosphatase Total Protein Albumin 02/25/18 02/25/18 02/25/18 05:30 05:30 05:30 WBC 6.6 RBC 3.71 L Hgb 11.7 Hct 35.0 MCV 94.3 MCH 31.4 MCHC 33.3 RDW 13.3 Plt Count 130 L MPV 8.9 Neut % (Auto) 62.9 Lymph % (Auto) 23.4 Harlan % (Auto) 11.3 H Eos % (Auto) 1.7 Baso % (Auto) 0.7 Neut # (Auto) 4.2 Lymph # (Auto) 1.6 Harlan # (Auto) 0.8 Eos # (Auto) 0.1 Baso # (Auto) 0.0 WBC Differential . Differential Comment Auto diff final PT 20.1 H INR 2.0 APTT Sodium 143 Potassium 3.4 L Chloride 106 Carbon Dioxide 28.7 Anion Gap 8 BUN 21 H Creatinine 1.10 H Estimated GFR 50 L Random Glucose 91 Calcium 8.2 L Total Bilirubin 0.6 AST 17 ALT 16 Alkaline Phosphatase 56 Total Protein 6.6 Albumin 2.8 L - Imaging Impressions Forearm X-Ray 02/24/18 00:00 CONCLUSION: Comminuted fracture of the radial head and neck. Elbow X-Ray 02/24/18 16:03 CONCLUSION: Comminuted displaced radial head fracture. Knee X-Ray 02/24/18 16:03 CONCLUSION: 1. Osteoarthritic findings with large osteophytes and moderate severity medial compartment narrowing. These findings are similar to the prior study. 2. Large joint effusion. This finding is new. 3. No evidence of fracture. Chest X-Ray 02/24/18 17:14 CONCLUSION: Mild cardiac silhouette enlargement. No other acute cardiopulmonary disease identified. Elbow CT 02/24/18 17:26 CONCLUSION: 1. Fractured proximal ulna and radius 2. Radiocapitellar dislocation 3. Or joint effusion or significant periarticular soft tissue swelling Assessment and Plan - Plan 67-year-old female with a past medical history of atrial fibrillation, CHF and hypertension who is presenting to the hospital with right elbow and right knee pain after a fall. Right radial/ulna fracture: S/p mechanical trip and fall. No LOC or symptoms prior to fall. -Elbow CT reviewed, shows fracture proximal ulna and radius, radiocapitellar dislocation, with soft tissue swelling and joint effusion -Per RCRI the patient has 1 point for having CHF, making her 0.9% cardiac risk for a moderate risk surgery. -orthopedic surgery consulted, plans for surgery when INR < 1.4, likely tomorrow 02/26 -make NPO after midnight. -hold Coumadin and follow INR, given vitamin K x1 -PT and OT consult -follow CBC. -pain control with bowel regimen. Right knee sprain/effusion: Patient also with right knee pain after the fall, however has known advanced arthritis of the right knee and bothered her frequently prior to the injury. -Right knee x-ray showed osteoarthritic findings with large osteophytes and moderate severity medial compartment narrowing, with a large joint effusion -Consult PT -Pain control as needed Anxiety: The pt is anxious about her living environment. -low dose Xanax as needed. -case management consult. A fib: Chronic. Rate is currently controlled. -continue patient's home cardizem, atenolol -monitor on telemetry -Coumadin on hold for surgery as above CHF: Chronic. Patient reports well controlled on home lasix. -No signs of fluid overload, hold off on Lasix for now -Continue patient's atenolol and losartan -Caution with fluids DVT prophylaxis: Coumadin on hold with upcoming surgery. Discharge Planning: Planning for surgery tomorrow. Further disposition to follow. Patient may need rehab placement. Case management to assist with discharge planning.
[2018-02-25] MEDS: Atenolol 25 MG Tablet PO SCH (11:29)
[2018-02-25] MEDS ORDERED: Sodium Chlor 0.9% Inj 500 ML IV.SIG SCH (13:00)
[2018-02-25] MEDS ORDERED: Metoprolol Tartrate 25 MG Tablet PO SCH (13:00)
[2018-02-25] MEDS ORDERED: Chlorhexidine Gluconate 2% 1 Pack (2 Cloths) TOPICAL SCH (13:00)
[2018-02-26 06:57] LABS: INR 1.3 Ratio; Prothrombin Time 13.2 sec (9.8-11.6)
[2018-02-26] MEDS ORDERED: Bupivacaine/Epinephrine PF Inj 0.25% 10 ML Vial ONE (07:14)
--- NOTE | 2018-02-26 07:27 | P.PNOP ---
Subjective Interval history: no changes INR redrawn this AM Physical Exam Vital signs: Vital Signs 02/25/18 07:41 02/25/18 11:28 02/25/18 11:33 Temperature 98.4 F Pulse Rate 64 Respiratory Rate 14 16 16 Blood Pressure 121/81 Pulse Oximetry 98 02/25/18 11:46 02/25/18 12:00 02/25/18 15:20 Temperature 98.7 F Pulse Rate 68 69 Respiratory Rate 16 17 Blood Pressure 108/54 L Pulse Oximetry 94 L 02/25/18 16:00 02/25/18 20:00 02/26/18 00:00 Temperature 100.0 F H 97.9 F 98.3 F Pulse Rate 52 L 68 66 Respiratory Rate 16 18 18 Blood Pressure 107/55 L 110/58 L 110/62 Pulse Oximetry 97 99 98 02/26/18 04:00 Temperature Pulse Rate 66 Respiratory Rate Blood Pressure Pulse Oximetry Narrative: RUE: +splint. intact. NVI Results - Labs CBC & Chem 7: 02/25/18 05:30 02/25/18 05:30 Laboratory Results - last 24 hr 02/26/18 05:30 PT 13.2 H INR 1.3 Assessment and Plan - Problem List (1) Right radial head fracture Code(s): S52.121A - Displaced fracture of head of right radius, initial encounter for closed fracture Status: Acute (2) Fracture of right proximal ulna Code(s): S52.001A - Unspecified fracture of upper end of right ulna, initial encounter for closed fracture Status: Acute - Assessment and Plan 1) Right Radial Head Fx -npo -surgery this AM with Paramjit -repeat INR is 1.3 [facility] Prescription Drug Monitoring Database has been queried and verified prior to prescribing the controlled substance. Acute pain exception. This patient has normal, predicted, physiological, and time limited response to an adverse mechanical stimulus associated with surgery, trauma, or acute illness as described in my notes. There is a lack of alternative treatment options other than to include the prescribed narcotic treatment for this condition.
[2018-02-26] MEDS ORDERED: Post-op Orders (for Pharmacy) OTHER STA (09:01)
--- NOTE | 2018-02-26 09:13 | P.OP ---
- Preoperative Diagnosis (1) Right radial head fracture (2) Fracture of right proximal ulna Date of procedure: 02/26/18 Procedure: Open treatment right radial head fracture with radial head implant arthroplasty Anesthesia: GETA Surgeon: Dwayne Joe MD Bottom Stop Attacher: STEPHANI Kenny PA-C The surgical procedure was assisted by my physician pet care assistant. My P.A. presence was necessary throughout this case for the manipulation and positioning of the surgical extremity. My P.A. was assisting me throughout the duration of this procedure. The skill set of a physician pet care assistant was medically necessary to complete this procedure. During the surgical case the surgical coordinator was working at the back table and the physician pet care assistant was directly assisting me. Operation and Findings: Implants used: Biomet size 7 stem, size 22+12 head Patient was seen and evaluated preoperatively. I discussed the risk and benefits of surgery in depth with patient. All questions were answered. Operative site was marked. Patient was brought the operating room, given IV sedation and general anesthesia. IV antibiotic's were administered prior to incision. Timeout procedure was performed. Operative arm was prepped with alcohol followed Hibiclens and draped in usual sterile fashion. Procedure began with a 3 inch incision over the lateral aspect of the elbow. Subcutaneous tissue was was dissected with Bovie. A standard lateral approach to the radial head was utilized. Care was taken to avoid injury to the posterior interosseous nerve. Joint capsule was incised. The radial head was visualized. The radial head was comminuted into multiple fragments. At this point the radial head fragments were removed. Decision was made to proceed with radial head replacement because of the combination of the articular surface. The radial head fragments were measured. A Biomet radial head replacement system was utilized. The proximal radius was exposed. Soft tissue was protected. Oscillating saw was used to level of the cut of the radius. The canal was sequentially broached until there was a good fit. A size 7 trial stem was placed. Next a trial head was placed. Fluoroscopy confirmed excellent fit of the prosthesis with concentrically reduced elbow joint. Trial components were removed. The stem was now opened. The stem was impacted into proximal radius. The head was now placed onto the stem and set screw was tightened appropriately. The radial head was reduced. Patient had full range of motion of her elbow with no resistance. Fluoroscopy confirmed appropriate placement of hardware. Incision was thoroughly irrigated. Fascia was closed with #1 Vicryl, subcutaneous tissues closed with 3 -0 Vicryl, and skin was closed with johnny. Patient was placed into a well molded well-padded splint. Patient was awakened and transferred to recovery room in stable condition. Needle and sponge counts were correct.
[2018-02-26] MEDS ORDERED: fentaNYL Citrate Inj 100 MCG/2 ML Ampul ONE (09:29)
--- NOTE | 2018-02-26 10:28 | XR ---
EXAM DATE: 02/26/2018 10:17 AM EDT AGE/SEX: 67 years / Female INDICATIONS: Right elbow open reduction internal fixation. CLINICAL DATA: This is the patient's initial encounter. Patient reports that signs and symptoms have been present for 1 day and indicates a pain score of Nonresponsive. MEDICAL/SURGICAL HISTORY: None. None. COMPARISON: [facility] [place], CT ELBOW RIGHT W/O CONTRAST, 02/24/2018. . FINDINGS: 2 spot intraoperative fluoroscopic views of the elbow are obtained and demonstrate a radial head pros thesis. There is excellent alignment at the elbow. CONCLUSION: Postoperative changes. Electronically signed by: Neeraj Casas MD 02/26/2018 10:27 AM EDT
[2018-02-26] MEDS: dilTIAZem CD 180 MG Capsule PO SCH (14:05)
[2018-02-26] MEDS: Senna/Docusate Sodium 8.6/50 MG Tablet PO SCH ×2 (14:05→20:10)
[2018-02-26] MEDS: Calcium/Vitamin D 250/125 MG Tablet PO SCH ×3 (14:06→17:24)
[2018-02-26] MEDS: Atenolol 25 MG Tablet PO SCH (14:06)
--- NOTE | 2018-02-26 15:36 | P.PN ---
Subjective Interval history: Follow-up for fall, elbow fracture, S/P Right elbow sx, right knee pain. Patient seen and examined today. States pain is manageable. States she is doing a lot better. Denies pain and discomfort. Denies SOB/ dyspnea. Denies chest pain, palpitations, headaches, dizziness. Denies fevers, chills, n/v/d. Denies hematuria, dysuria. Physical Exam Vital signs: Vital Signs 02/25/18 16:00 02/25/18 20:00 02/26/18 00:00 Temperature 100.0 F H 97.9 F 98.3 F Pulse Rate 52 L 68 66 Respiratory Rate 16 18 18 Blood Pressure 107/55 L 110/58 L 110/62 Pulse Oximetry 97 99 98 02/26/18 04:00 02/26/18 09:26 02/26/18 09:45 Temperature 98 F Pulse Rate 66 70 68 Respiratory Rate 18 18 Blood Pressure 139/65 126/72 Pulse Oximetry 97 02/26/18 10:00 02/26/18 10:15 02/26/18 10:30 Temperature 98 F Pulse Rate 65 73 76 Respiratory Rate 18 18 18 Blood Pressure 148/72 H 156/72 H 135/63 Pulse Oximetry 97 97 97 02/26/18 11:30 02/26/18 12:30 02/26/18 12:58 Temperature 98 F Pulse Rate 78 71 71 Respiratory Rate 18 18 18 Blood Pressure 135/78 125/78 125/78 Pulse Oximetry 97 96 96 Intake & Output 02/25/18 02/26/18 02/26/18 18:59 06:59 18:59 Intake Total 200 / 200 Output Total 30 / 30 Balance 170 / 170 Weight 90.3 kg Intake: IV 200 / 200 LR 1000 mL Inj 1,000 ML @ 30 200 / 200 mls/hr IV.SIG .Q24H [facility] Rx#: [id number] Output: Estimated Blood Loss 30 / 30 Other: Date of Last Bowel Movement 02/25/18 Weight On Admission 90.3 kg Narrative: GENERAL: This is a well-nourished, well-developed patient, in no apparent distress. SKIN: Warm and dry. HEENT: Normocephalic. Pupils equal round and reactive. Nose without bleeding. Airway patent. NECK: Trachea midline. Supple. CARDIOVASCULAR: Regular rate and rhythm without murmurs, gallops, or rubs. RESPIRATORY: Clear to auscultation. Breath sounds equal bilaterally. No wheezes , rales, or rhonchi. GASTROINTESTINAL: Abdomen soft, non-tender, nondistended. Bowel Sounds normoactive x4. MUSCULOSKELETAL: Extremities without clubbing, cyanosis. RUE with splint,intact NEUROLOGICAL: Awake and alert. Oriented to time, place, person. No focal neuro deficit. Moves all extremities. Normal speech. Results - Labs CBC & Chem 7: 02/25/18 05:30 02/25/18 05:30 Laboratory Results - last 24 hr 02/26/18 05:30 PT 13.2 H INR 1.3 - Imaging Impressions Elbow X-Ray 02/26/18 00:00 CONCLUSION: Postoperative changes. Assessment and Plan - Plan 67-year-old female with a past medical history of atrial fibrillation, CHF and hypertension who is presenting to the hospital with right elbow and right knee pain after a fall. Right radial/ulna fracture: S/p mechanical trip and fall. No LOC or symptoms prior to fall. Status post Open treatment right radial head fracture with radial head implant arthroplasty -Elbow CT reviewed, shows fracture proximal ulna and radius, radiocapitellar dislocation, with soft tissue swelling and joint effusion -Per RCRI the patient has 1 point for having CHF, making her 0.9% cardiac risk for a moderate risk surgery. -orthopedic surgery following. S/P surgery. -Coumadin held, given vitamin K x1 preop, will restart -PT and OT consult -pain control with bowel regimen. Right knee sprain/effusion: Patient also with right knee pain after the fall, however has known advanced arthritis of the right knee and bothered her frequently prior to the injury. -Right knee x-ray showed osteoarthritic findings with large osteophytes and moderate severity medial compartment narrowing, with a large joint effusion -Consult PT -Pain control as needed Anxiety: The pt is anxious about her living environment. -low dose Xanax as needed. -case management consult. A fib: Chronic. Rate is currently controlled. -continue patient's home cardizem, atenolol -monitor on telemetry -Coumadin restart, bridge with lovenox CHF: Chronic. Patient reports well controlled on home lasix. -No signs of fluid overload, hold off on Lasix for now -Continue patient's atenolol and losartan -Caution with fluids DVT prophylaxis will restart coumadin, bridge lovenox Code Status: Full Code Discussed Condition With: Patient, nursing, Dr. Mcneil Discharge Planning: DC when cleared by ortho, clinically improved
[2018-02-26] MEDS ORDERED: Warfarin Consult Pharmacy OTHER PRN (16:28)
[2018-02-26] MEDS: ceFAZolin Inj 2,000 MG in Sodium Chlor 0.9% Inj 80 ML IV.SIG SCH ×2 (16:43→23:16)
--- NOTE | 2018-02-26 16:45 | ECG ---
Date Performed: 02/26/2018 Time Performed: 04:49:15 PTAGE: 67 years EKG: ATRIAL FIBRILLATION LOW QRS VOLTAGE IN EXTREMITY LEADS POSSIBLE ANTERIOR MYOCARDIAL INFARCT ION, AGE INDETERMINATE ABNORMAL RHYTHM ECG NO PREVIOUS TRACING DOCTOR: Alfonso Hays Interpretating Date/Time 02/26/2018 16:43:26
[2018-02-26] MEDS: Morphine Inj 4 MG/ML Vial IV.PUSH PRN (19:53)
[2018-02-26] MEDS: Enoxaparin Inj 100 MG/ML Syringe SQ SCH (20:10)
--- NOTE | 2018-02-27 06:34 | P.PNOP ---
Subjective Interval history: POD 1 s/p right radial head replacement doing well. states as long as doesnt move arm too much then no pain. live at home alone Physical Exam Vital signs: Vital Signs 02/26/18 09:26 02/26/18 09:45 02/26/18 10:00 Temperature 98 F Pulse Rate 70 68 65 Respiratory Rate 18 18 18 Blood Pressure 139/65 126/72 148/72 H Pulse Oximetry 97 97 02/26/18 10:15 02/26/18 10:30 02/26/18 11:30 Temperature 98 F Pulse Rate 73 76 78 Respiratory Rate 18 18 18 Blood Pressure 156/72 H 135/63 135/78 Pulse Oximetry 97 97 97 02/26/18 12:30 02/26/18 12:58 02/26/18 16:00 Temperature 98 F 98 F Pulse Rate 71 71 Respiratory Rate 18 18 18 Blood Pressure 125/78 125/78 123/65 Pulse Oximetry 96 96 99 02/26/18 17:13 02/26/18 19:13 02/26/18 21:12 Temperature 97.9 F Pulse Rate 58 L 84 Respiratory Rate 18 18 Blood Pressure 99/58 L Pulse Oximetry 95 02/26/18 23:25 02/27/18 00:08 02/27/18 03:35 Temperature 99.3 F 99.0 F Pulse Rate 88 97 H 85 Respiratory Rate 18 18 Blood Pressure 108/52 L 132/68 Pulse Oximetry 96 97 02/27/18 04:06 Temperature Pulse Rate 96 H Respiratory Rate Blood Pressure Pulse Oximetry Intake & Output 02/26/18 02/26/18 02/27/18 06:59 18:59 06:59 Intake Total 700 / 700 580 / 580 Output Total 30 / 30 Balance 670 / 670 580 / 580 Weight 90.3 kg Intake: IV 700 / 700 100 / 100 LR 1000 mL Inj 1,000 ML @ 30 600 / 600 mls/hr IV.SIG .Q24H [facility] Rx#: [id number] Ancef Inj 2,000 MG In NS Inj 80 100 / 100 100 / 100 ML @ 200 mls/hr IV.SIG Q8H [facility] Rx#:[id number] Oral 480 / 480 Output: Estimated Blood Loss 30 / 30 Other: # Voids 2 Date of Last Bowel Movement 02/25/18 02/25/18 # Bowel Movements 0 Weight On Admission 90.3 kg Narrative: RUE: +long arm splint. intact. NVI to fingers Results - Labs CBC & Chem 7: 02/25/18 05:30 02/25/18 05:30 Laboratory Results - last 24 hr 02/26/18 05:30 PT 13.2 H INR 1.3 - Imaging Impressions Elbow X-Ray 02/26/18 00:00 CONCLUSION: Postoperative changes. Assessment and Plan - Problem List (1) Right radial head fracture Code(s): S52.121A - Displaced fracture of head of right radius, initial encounter for closed fracture Status: Acute (2) Fracture of right proximal ulna Code(s): S52.001A - Unspecified fracture of upper end of right ulna, initial encounter for closed fracture Status: Acute - Assessment and Plan 1) Right Radial Head Fx s/p replacement - POD 1 -NWB -splint and sling at all times -patient lives alone and will not be safe for discharge home by herself -will need rehab placement -f/u with Paramjit or [facility] in 1 week for xrays inside of splint. -ortho clear for DC to rehab when arrangements made [facility] [place] Prescription Drug Monitoring Database has been queried and verified prior to prescribing the controlled substance. Acute pain exception. This patient has normal, predicted, physiological, and time limited response to an adverse mechanical stimulus associated with surgery, trauma, or acute illness as described in my notes. There is a lack of alternative treatment options other than to include the prescribed narcotic treatment for this condition.
[2018-02-27 06:44] LABS: INR 1.2 Ratio
[2018-02-27] MEDS: ceFAZolin Inj 2,000 MG in Sodium Chlor 0.9% Inj 80 ML IV.SIG SCH (07:53)
[2018-02-27] MEDS: Calcium/Vitamin D 250/125 MG Tablet PO SCH ×3 (08:00→17:53)
[2018-02-27] MEDS: dilTIAZem CD 180 MG Capsule PO SCH (08:00)
[2018-02-27] MEDS: Furosemide 20 MG Tablet PO SCH (08:00)
[2018-02-27] MEDS: Atenolol 25 MG Tablet PO SCH (08:00)
[2018-02-27] MEDS: Senna/Docusate Sodium 8.6/50 MG Tablet PO SCH ×2 (08:02→21:08)
[2018-02-27] MEDS: Enoxaparin Inj 100 MG/ML Syringe SQ SCH ×2 (09:03→21:07)
--- NOTE | 2018-02-27 14:14 | P.DCO ---
- Physical Therapy Order: Evaluate and treat, Improve ambulation, Strength and gait training - Occupational Therapy Order: Evaluate and treat, Improve ADL, Gross motor coordination, Fine motor coordination - Home Health Nursing Order: Medical education, Signs/symptoms of disease process, Medication education-adverse effect, Wound care and dressing changes, Nursing assessment with vital signs - Certification I have seen patient Luna Davison on 02/27/18. My clinical findings support the need for the requested home health care services because: Limited mobility due to disease progression, Deconditioned with increased weakness, Limited ability to care for self, High risk of falls I certify that my clinical findings support that this patient is homebound because: Unsteady gait/balance, Unsafe to leave home unassisted, Unable to use public transportation
--- NOTE | 2018-02-27 14:56 | P.PN ---
Subjective Interval history: Patient seen lying in bed. Tells me she does have some pain but that it is okay. She is concerned about going home and does not want to be alone. Denies any chest pain or shortness of breath. Denies nausea vomiting or diarrhea. She is tolerating meals well. Physical Exam Vital signs: Vital Signs 02/26/18 16:00 02/26/18 17:13 02/26/18 19:13 Temperature 98 F 97.9 F Pulse Rate 58 L Respiratory Rate 18 18 18 Blood Pressure 123/65 99/58 L Pulse Oximetry 99 95 02/26/18 21:12 02/26/18 23:25 02/27/18 00:08 Temperature 99.3 F Pulse Rate 84 88 97 H Respiratory Rate 18 Blood Pressure 108/52 L Pulse Oximetry 96 02/27/18 03:35 02/27/18 04:06 02/27/18 08:00 Temperature 99.0 F 98.0 F Pulse Rate 85 96 H 89 Respiratory Rate 18 16 Blood Pressure 132/68 143/76 H Pulse Oximetry 97 97 Intake & Output 02/26/18 02/27/18 02/27/18 18:59 06:59 18:59 Intake Total 700 / 700 580 / 580 100 / 100 Output Total 30 / 30 Balance 670 / 670 580 / 580 100 / 100 Weight 90.3 kg Intake: IV 700 / 700 100 / 100 100 / 100 LR 1000 mL Inj 1,000 ML @ 30 600 / 600 mls/hr IV.SIG .Q24H AMI Rx#: [id number] Ancef Inj 2,000 MG In NS Inj 80 100 / 100 100 / 100 100 / 100 ML @ 200 mls/hr IV.SIG Q8H AMI Rx#:[id number] Oral 480 / 480 Output: Estimated Blood Loss 30 Other: # Voids 2 Date of Last Bowel Movement 02/25/18 02/25/18 # Bowel Movements 0 Weight On Admission 90.3 kg Narrative: GENERAL: This is a well-nourished, well-developed patient, in no apparent distress. SKIN: Warm and dry. HEENT: Normocephalic. Pupils equal round and reactive. Nose without bleeding. Airway patent. NECK: Trachea midline. Supple. CARDIOVASCULAR: Regular rate and rhythm without murmurs, gallops, or rubs. RESPIRATORY: Clear to auscultation. Breath sounds equal bilaterally. No wheezes , rales, or rhonchi. GASTROINTESTINAL: Abdomen soft, non-tender, nondistended. Bowel Sounds normoactive x4. MUSCULOSKELETAL: Extremities without clubbing, cyanosis. RUE with splint NEUROLOGICAL: Awake and alert. Oriented to time, place, person. No focal neuro deficit. Normal speech. Results - Labs CBC & Chem 7: 02/25/18 05:30 02/25/18 05:30 Laboratory Results - last 24 hr 02/27/18 05:54 PT 12.0 H INR 1.2 Assessment and Plan - Plan 67-year-old female with a past medical history of atrial fibrillation, CHF and hypertension who is presenting to the hospital with right elbow and right knee pain after a fall. Right radial/ulna fracture: S/p mechanical trip and fall. No LOC or symptoms prior to fall. Status post Open treatment right radial head fracture with radial head implant arthroplasty -Elbow CT reviewed, shows fracture proximal ulna and radius, radiocapitellar dislocation, with soft tissue swelling and joint effusion -Per RCRI the patient has 1 point for having CHF, making her 0.9% cardiac risk for a moderate risk surgery. -orthopedic surgery following. S/P surgery. -Coumadin held, given vitamin K x1 preop, will restart -PT and OT consult -pain control with bowel regimen. Right knee sprain/effusion: Patient also with right knee pain after the fall, however has known advanced arthritis of the right knee and bothered her frequently prior to the injury. -Right knee x-ray showed osteoarthritic findings with large osteophytes and moderate severity medial compartment narrowing, with a large joint effusion -Consult PT -Pain control as needed Anxiety: The pt is anxious about her living environment. -low dose Xanax as needed. -case management consult. A fib: Chronic. Rate is currently controlled. -continue patient's home cardizem, atenolol -monitor on telemetry -Coumadin restart, bridge with lovenox CHF: Chronic. Patient reports well controlled on home lasix. -No signs of fluid overload, hold off on Lasix for now -Continue patient's atenolol and losartan -Caution with fluids DVT prophylaxis will restart coumadin, bridge lovenox Code Status: Full Code Discussed Condition With: Patient, nursing, CM Discharge Planning: Patient cleared by orthopedist will discharge home with
--- NOTE | 2018-02-27 15:06 | P.DS ---
Date of admission: 02/24/18 17:45 Primary care physician: PROVIDER NON STAFF Attending physician on discharge: López Spencer Anticipated date of discharge: 02/27/18 Brief History from admission: The patient is a 67-year-old female with a past medical history of atrial fibrillation, CHF and hypertension who is presenting to the hospital after a fall. The patient says that she was carrying a bag and then all of a sudden she was on the ground. She does not recall any symptoms prior to falling down. She is not sure if she tripped or not. She did not feel any weakness prior to falling down, but she was aware of herself falling to the floor. She denies hitting her head or blacking out. She says she felt significant pain in her right arm immediately. She got herself up and drove herself to the hospital one -handed. The patient is to admit about taking pain medications but realizes she needs them. She endorses a lot of anxiety and seems interested in anxiety medications as needed. The patient says she is nervous about living at home alone because things like this fall happens to her. She has some neighbors that also make her nervous. DS: Diagnosis - Discharge Diagnosis (1) Fracture of right proximal ulna Status: Acute (2) Right radial head fracture Status: Acute DS: Medications - Discharge Medications Prescriptions: hydrocodone-acetaminophen [[place]] 1 tab PO Q4H #40 tab DS: Summary Hospital Course: 67-year-old female with a past medical history of atrial fibrillation, CHF and hypertension who is presenting to the hospital with right elbow and right knee pain after a fall. Right radial/ulna fracture. No LOC or symptoms prior to fall. Status post Open treatment right radial head fracture with radial head implant arthroplasty. Elbow CT reviewed, shows fracture proximal ulna and radius , radiocapitellar dislocation, with soft tissue swelling and joint effusion. Also had right knee sprain/effusion: Patient also with right knee pain after the fall, however has known advanced arthritis of the right knee and bothered her frequently prior to the injury. Right knee x-ray showed osteoarthritic findings with large osteophytes and moderate severity medial compartment narrowing, with a large joint effusion. Recommending conservative management and pain control. - Time Spent with Patient Total time spent providing and/or coordinating discharge services: Less than 30 minutes - Quality: VTE Deep Vein Thrombosis/Pulmonary Embolism Present on Admission: No Exam Vital signs: Vital Signs 02/26/18 16:00 02/26/18 17:13 02/26/18 19:13 Temperature 98 F 97.9 F Pulse Rate 58 L Respiratory Rate 18 18 18 Blood Pressure 123/65 99/58 L Pulse Oximetry 99 95 02/26/18 21:12 02/26/18 23:25 02/27/18 00:08 Temperature 99.3 F Pulse Rate 84 88 97 H Respiratory Rate 18 Blood Pressure 108/52 L Pulse Oximetry 96 02/27/18 03:35 02/27/18 04:06 02/27/18 08:00 Temperature 99.0 F 98.0 F Pulse Rate 85 96 H 89 Respiratory Rate 18 16 Blood Pressure 132/68 143/76 H Pulse Oximetry 97 97 Intake & Output 02/26/18 02/27/18 02/27/18 18:59 06:59 18:59 Intake Total 700 / 700 580 / 580 100 / 100 Output Total 30 / 30 Balance 670 / 670 580 / 580 100 / 100 Weight 90.3 kg Intake: IV 700 / 700 100 / 100 100 / 100 LR 1000 mL Inj 1,000 ML @ 30 600 / 600 mls/hr IV.SIG .Q24H AMI Rx#: [id number] Ancef Inj 2,000 MG In NS Inj 80 100 / 100 100 / 100 100 / 100 ML @ 200 mls/hr IV.SIG Q8H AMI Rx#:[id number] Oral 480 / 480 Output: Estimated Blood Loss 30 / 30 Other: # Voids 2 Date of Last Bowel Movement 02/25/18 02/25/18 # Bowel Movements 0 Weight On Admission 90.3 kg Narrative: GENERAL: This is a well-nourished, well-developed patient, in no apparent distress. SKIN: Warm and dry. HEENT: Normocephalic. Pupils equal round and reactive. Nose without bleeding. Airway patent. NECK: Trachea midline. Supple. CARDIOVASCULAR: Regular rate and rhythm without murmurs, gallops, or rubs. RESPIRATORY: Clear to auscultation. Breath sounds equal bilaterally. No wheezes , rales, or rhonchi. GASTROINTESTINAL: Abdomen soft, non-tender, nondistended. Bowel Sounds normoactive x4. MUSCULOSKELETAL: Extremities without clubbing, cyanosis. RUE with splint NEUROLOGICAL: Awake and alert. Oriented to time, place, person. No focal neuro deficit. Normal speech. Results Procedures completed during hospitalization: Open treatment right radial head fracture with radial head implant arthroplasty Labs on day of discharge: Labs from last 24 hours 02/27/18 05:54 PT 12.0 H INR 1.2 - Impressions ITS Impressions Forearm X-Ray 02/24/18 00:00 CONCLUSION: Comminuted fracture of the radial head and neck. Knee X-Ray 02/24/18 16:03 CONCLUSION: 1. Osteoarthritic findings with large osteophytes and moderate severity medial compartment narrowing. These findings are similar to the prior study. 2. Large joint effusion. This finding is new. 3. No evidence of fracture. Chest X-Ray 02/24/18 17:14 CONCLUSION: Mild cardiac silhouette enlargement. No other acute cardiopulmonary disease identified. Elbow CT 02/24/18 17:26 CONCLUSION: 1. Fractured proximal ulna and radius 2. Radiocapitellar dislocation 3. Or joint effusion or significant periarticular soft tissue swelling Elbow X-Ray 02/26/18 00:00 CONCLUSION: Postoperative changes. Discharge Plan - Discharge Disposition Patient Disposition: /Home Health Service - Discharge Condition Condition: Stable - Discharge Order Discharge Orders: Discharge Order (Routine); Ordered 02/27/18 Ordered By: Aster Delgado Orthopedic Clear for Discharge (Routine); Ordered 02/27/18 Ordered By: Bradley Fsiher - Physicians Team Primary Care Provider: NON STAFF,PROVIDER Attending Provider: López Spencer Other Providers: Joseph Camarillo MD ; Dwayne Joe MD ; [employer], Insurance
[2018-02-27 16:21] LABS: Calcium 8.5 mg/dL (8.5-10.1); Carbon Dioxide 29.4 meq/L (21.0-32.0); Potassium 4.1 meq/L (3.5-5.1)
[2018-02-28 06:16] LABS: INR 1.1 Ratio; Prothrombin Time 11.6 sec (9.8-11.6)
--- NOTE | 2018-02-28 06:27 | P.PNOP ---
Subjective Interval history: Resting comfortably with no new complaints Physical Exam Vital signs: Vital Signs 02/27/18 08:00 02/27/18 12:00 02/27/18 16:00 Temperature 98.0 F 97.4 F L 97.9 F Pulse Rate 89 63 87 Respiratory Rate 16 16 16 Blood Pressure 143/76 H 110/68 109/56 L Pulse Oximetry 97 94 L 100 02/27/18 20:00 02/27/18 20:19 02/27/18 21:08 Temperature 98.5 F Pulse Rate 69 73 Respiratory Rate 17 17 Blood Pressure 99/55 L Pulse Oximetry 94 L 02/28/18 00:00 02/28/18 00:02 02/28/18 04:00 Temperature 98.0 F 97.1 F L Pulse Rate 71 75 84 Respiratory Rate 17 17 Blood Pressure 117/67 142/82 H Pulse Oximetry 95 95 02/28/18 04:25 Temperature Pulse Rate 63 Respiratory Rate Blood Pressure Pulse Oximetry Intake & Output 02/27/18 02/27/18 02/28/18 06:59 18:59 06:59 Intake Total 580 / 580 100 / 100 Balance 580 / 580 100 / 100 Intake: IV 100 / 100 100 / 100 Ancef Inj 2,000 MG In NS Inj 80 100 / 100 100 / 100 ML @ 200 mls/hr IV.SIG Q8H AMI Rx#:[id number] Oral 480 / 480 Other: # Voids 2 3 Date of Last Bowel Movement 02/25/18 02/25/18 # Bowel Movements 0 Narrative: Right upper extremity: Splint intact. Intact sensation distally over radial ulnar median with good capillary refills. She is able to extend her fingers make a fist. Results - Labs CBC & Chem 7: 02/25/18 05:30 02/27/18 13:57 Laboratory Results - last 24 hr 02/27/18 02/27/18 02/28/18 05:54 13:57 05:02 PT 12.0 H 11.6 INR 1.2 1.1 Sodium 140 Potassium 4.1 Chloride 102 Carbon Dioxide 29.4 Anion Gap 9 BUN 16 Creatinine 1.04 H Estimated GFR 53 L Random Glucose 118 H Calcium 8.5 - Procedures Open treatment right radial head fracture with radial head implant arthroplasty Assessment and Plan - Problem List (1) Right radial head fracture Code(s): S52.121A - Displaced fracture of head of right radius, initial encounter for closed fracture Status: Acute (2) Fracture of right proximal ulna Code(s): S52.001A - Unspecified fracture of upper end of right ulna, initial encounter for closed fracture Status: Acute - Assessment and Plan 1) Right Radial Head Fx s/p replacement - POD 2 -NWB -splint and sling at all times -patient lives alone and will not be safe for discharge home by herself -will need rehab placement -f/u with [facility] or [facility] in 1 week for xrays inside of splint. -ortho clear for DC to rehab when arrangements made [employer] Prescription Drug Monitoring Database has been queried and verified prior to prescribing the controlled substance. Acute pain exception. This patient has normal, predicted, physiological, and time limited response to an adverse mechanical stimulus associated with surgery, trauma, or acute illness as described in my notes. There is a lack of alternative treatment options other than to include the prescribed narcotic treatment for this condition.
[2018-02-28] MEDS: Atenolol 25 MG Tablet PO SCH (09:23)
[2018-02-28] MEDS: Senna/Docusate Sodium 8.6/50 MG Tablet PO SCH (09:23)
[2018-02-28] MEDS: Furosemide 20 MG Tablet PO SCH (09:24)
[2018-02-28] MEDS: Enoxaparin Inj 100 MG/ML Syringe SQ SCH (09:24)
[2018-02-28] MEDS: Calcium/Vitamin D 250/125 MG Tablet PO SCH (09:24)
[2018-02-28] MEDS: dilTIAZem CD 180 MG Capsule PO SCH (09:25)
== END 2018-02-28 12:50 | disposition home health service (06) ==
LOC: NEDA 15:34 → NEPD 15:34 → NEDA 20:45 → NEPHCDU 21:36 → N06 02-26 08:30
PROVIDERS: ADMIT Hospitalist; ATTEND Hospitalist
DX: R06.89 Other abnormalities of breathing; E11.9 Type 2 diabetes mellitus without complications; F17.210 Nicotine dependence, cigarettes, uncomplicated; W18.30XA Fall on same level, unspecified, initial encounter; G89.29 Other chronic pain; Z79.01 Long term (current) use of anticoagulants; I50.9 Heart failure, unspecified; M17.11 Unilateral primary osteoarthritis, right knee; F41.9 Anxiety disorder, unspecified; S42.401A Unspecified fracture of lower end of right humerus, initial encounter for closed fracture; M25.561 Pain in right knee; S52.121A Displaced fracture of head of right radius, initial encounter for closed fracture; S52.001A Unspecified fracture of upper end of right ulna, initial encounter for closed fracture; I11.0 Hypertensive heart disease with heart failure; I48.2 Chronic atrial fibrillation; S61.411A Laceration without foreign body of right hand, initial encounter